=== PATIENT | male | born 1965 | race American Indian/Alaskan Native ===

== ENCOUNTER 2017-11-19 19:27 | Emergency (ER) | payer MEDICARE ==
[2017-11-19] MEDS ORDERED: ZOFRAN ODT PO ONE (19:54)
[2017-11-19 20:26] LABS: Hematocrit 44.3 % (35.5-45.6); Hemoglobin 14.5 gm/dl (11.8-15.2); Mean Corpuscular HGB Conc 33 % (32-34); Mean Corpuscular Hemoglobin 32 pg (28-32); Mean Corpuscular Volume 98 fl (84-94); Platelet Count 179 K/mm3 (140-440); Red Blood Count 4.52 M/mm3 (3.65-5.03); Red Cell Distribution Width 14.3 % (13.2-15.2)
[2017-11-19 20:39] LABS: INR 0.88 (0.87-1.13)
[2017-11-19 20:40] LABS: BUN/Creatinine Ratio 18; Blood Urea Nitrogen 16 mg/dL (9-20); Calcium 9.3 mg/dL (8.4-10.2); Hemolysis Index 2; Partial Thromboplastin Time 29.2 Sec. (24.2-36.6)
--- NOTE | 2017-11-19 21:07 | Cat Scan Report ---
FINAL REPORT PROCEDURE: CT HEAD/BRAIN WO CON TECHNIQUE: Computerized tomography of the head was performed without contrast material. HISTORY: severe headache s/p eye surgery COMPARISON: No prior studies are available for comparison. FINDINGS: Skull and scalp: Normal. Paranasal sinuses: Normal. Ventricles and subarachnoid spaces: Normal. Cerebrum: No evidence of hemorrhage, acute infarction or mass . Cerebellum and brainstem: No evidence of hemorrhage, acute infarction or mass. Vasculature: Normal. Comments: Vitreous of bilateral eye balls is hyperdense in nature. IMPRESSION: No acute intracranial abnormality Hyperdense which reassess in bilateral high balls is noted. This may be secondary to postsurgical status. Clinical correlation is recommended.
--- NOTE | 2017-11-19 21:37 | Cat Scan Report ---
FINAL REPORT PROCEDURE: CT ORBIT/EAR/FOSSA WO CON TECHNIQUE: Computerized axial tomography of the orbits was performed without contrast material. HISTORY: severe headache s/p eye surgery COMPARISON: No prior studies are available for comparison. FINDINGS: Bones and sinuses: Normal. Globes: Bilateral sclera appears thickened. Vitreous is diffusely and homogeneously hyperdense bilaterally. There is a crescent-shaped hypodense thickening of posterior left choroid. Extraocular muscles: Normal. Optic nerves: Normal. Lacrimal glands: Normal. IMPRESSION: Diffusely increased density of a vitreous bilaterally may represent postoperative changes. Thickening of the posterior choroid/retina. This may represent posterior uveitis in the appropriate clinical situation. Mild degree thickening of bilateral sclera is noted and scleritis cannot be excluded.
[2017-11-19] MEDS ORDERED: NORCO 5/325 PO ONE (23:37)
[2017-11-20] MEDS ORDERED: SUBLIMAZE IV ONE (03:50)
[2017-11-20] MEDS ORDERED: ZOFRAN IV ONE ×2 (03:50→06:48)
--- NOTE | 2017-11-20 04:10 | XRay Report ---
FINAL REPORT EXAM: XR CHEST ROUTINE 2V HISTORY: dyspnea, chest pain TECHNIQUE: PA and lateral views of the chest were submitted. FINDINGS: The heart size and mediastinum appear normal. There are no localized infiltrates or effusions. There is minimal atelectatic changes in the lingula. The skeletal structures reveal multilevel disc degeneration in the dorsal spine IMPRESSION: Minimal atelectatic changes in the lingula. No acute infiltrates or congestion.
[2017-11-20] MEDS ORDERED: NACL 0.9% 1000 ML 1,000 ML IV ONE (06:48)
[2017-11-20] MEDS ORDERED: DILAUDID IV ONE (06:48)
--- NOTE | 2017-11-20 07:37 | Emergency Department Report ---
ED Eye Problem HPI - General Chief complaint: Eye Problems Stated complaint: c/p Time Seen by Provider: 11/20/17 06:10 Source: patient Mode of arrival: Ambulatory Limitations: No Limitations - History of Present Illness Initial comments: 52-year-old male with a past medical history diabetes, hypertension, neuropathy , eye problems presents to the hospital complaints of pain left sided headache, nausea, vomiting, and palpitations. Patient had surgery 5 days ago on November 15. Patient states he has diabetic retinopathy and had a hemorrhage to his posterior left eye requiring drainage and placement of silicone. He also was told he had a lot of scar tissue. Patient has had left eye pain since his surgery that worsened yesterday and sprayed to his left side of his head. Patient was seen by his cement based materials pump tender yesterday as well prescribed a additional pain medication. Despite medication patient continues to have 10/10 left-sided headache and began to develop vomiting, heart palpitations, and chest pain. Patient has very little vision in his eye prior to surgery this time. He was told he could take several months to recover some vision. He also has had surgery in the past on his right eye. No fever reported. Supervisor [employer]: Alex Saldivar M.D. at the [facility] - Related Data Home Medications Medication Instructions Recorded Confirmed Last Taken metFORMIN [Glucophage] 500 mg PO BID 09/12/13 01/31/14 09/12/13 07:00 Lisinopril [Zestril TAB] 10 mg PO DAILY 01/31/14 01/31/14 Unknown Previous Rx's Medication Instructions Recorded Last Taken Type Insulin NPH/Regular [NovoLIN 70/30] 18 unit SUB-Q BIDDIAB #1500 units 09/24/13 Unknown Rx Aspirin [Aspirin BABY CHEW TAB] 81 mg PO QDAY #30 tab.chew 02/01/14 Unknown Rx Metoclopramide HCl [Reglan] 5 mg PO TIDAC #90 tablet 02/01/14 Unknown Rx Pantoprazole [Protonix] 40 mg PO QDAY #30 tablet 02/01/14 Unknown Rx Simethicone [Gas-X] 80 mg PO QID #30 tab.chew 02/01/14 Unknown Rx Allergies Allergy/AdvReac Type Severity Reaction Status Date / Time No Known Allergies Allergy Verified 09/12/13 19:40 ED Review of Systems ROS: Stated complaint: c/p Other details as noted in HPI Comment: All other systems reviewed and negative ED Past Medical Hx - Past Medical History Hx Hypertension: Yes Hx Heart Attack/AMI: No Hx Congestive Heart Failure: No Hx Diabetes: Yes Hx Deep Vein Thrombosis: No Hx Pulmonary Embolism: No Hx Liver Disease: No Hx Renal Disease: No Hx Sickle Cell Disease: No Hx Arthritis: No Hx Seizures: No Hx Kidney Stones: No Hx Asthma: No Hx COPD: No Hx Tuberculosis: No Hx Dementia: No Additional medical history: neuorpathy with chronic lower extremity pain. recent infection of herpes zoster to right flank area - Surgical History Hx Coronary Stent: No Hx Open Heart Surgery: No Hx Pacemaker: No Hx Internal Defibrillator: No Hx Cholecystectomy: No Hx Appendectomy: No Hx Breast Surgery: No Additional Surgical History: l) wrist artery surgery - Social History Smoking Status: Unknown if ever smoked Substance Use Type: None - Medications Home Medications: Home Medications Medication Instructions Recorded Confirmed Last Taken Type metFORMIN [Glucophage] 500 mg PO BID 09/12/13 01/31/14 09/12/13 07:00 History Insulin NPH/Regular [NovoLIN 70/30] 18 unit SUB-Q BIDDIAB #1500 units 09/24/13 01/31/14 Unknown Rx Lisinopril [Zestril TAB] 10 mg PO DAILY 01/31/14 01/31/14 Unknown History Aspirin [Aspirin BABY CHEW TAB] 81 mg PO QDAY #30 tab.chew 02/01/14 Unknown Rx Metoclopramide HCl [Reglan] 5 mg PO TIDAC #90 tablet 02/01/14 Unknown Rx Pantoprazole [Protonix] 40 mg PO QDAY #30 tablet 02/01/14 Unknown Rx Simethicone [Gas-X] 80 mg PO QID #30 tab.chew 02/01/14 Unknown Rx ED Physical Exam - General Limitations: No Limitations - Other Other exam information: General: No limitations, patient is alert in no acute distress Head exam: Atraumatic, normocephalic Eyes exam: Left eye conjunctival erythema with a dilated unresponsive pupil at approximately 5 mm. Patient states he Perceive light but no vision in his left eye beyond that.. Right eye approximately 3-4 mm and reactive. Extraocular movements intact. ENT: Moist mucous membrane, left tm normal Neck exam: Normal inspection, full range of motion, no meningismus nontender Respiratory exam: Clear to auscultation bilateral, no wheezes, rales, crackles Cardiovascular: Normal rate and rhythm, normal heart sounds Abdomen: Soft, nondistended, and nontender, with normal bowel sounds, no rebound, or guarding Extremity: Full range of motion normal inspection no deformity Back: Normal Inspection, full range of motion, no tenderness Neurologic: Alert, oriented x3, cranial nerves intact, no motor or sensory deficit Psychiatric: normal affect, normal mood Skin: Warm, dry, intact ED Course Vital Signs 11/19/17 11/19/17 11/20/17 19:40 23:43 02:00 Temperature 99.9 F H 98 F Pulse Rate 70 71 Respiratory 20 18 18 Rate Blood Pressure 154/98 Blood Pressure 148/96 [Left] O2 Sat by Pulse 99 100 Oximetry 11/20/17 05:45 Temperature Pulse Rate 72 Respiratory Rate Blood Pressure Blood Pressure 150/91 [Left] O2 Sat by Pulse Oximetry - Reevaluation(s) Reevaluation #1: 11/20/17 07:43 Patient treated with fentanyl, [place], when necessary IV Zofran prior to my arrival and continues to have significant pain with repeated episodes of nausea and vomiting. No chest pain reported Reevaluation #2: 11/20/17 08:21 pain and vomiting controlled after Dilaudid and zofran - Consultations Consultation #1: 11/20/17 08:22 Dr Hinojosa opthomologist returned call at this time. Request pt to be d/harmeet to the office to be seen. ED Medical Decision Making - Lab Data Result diagrams: 11/19/17 20:02 11/19/17 20:02 Lab Results 11/19/17 11/19/17 11/19/17 Range/Units 20:02 20:02 20:02 WBC 8.8 (4.5-11.0) K/mm3 RBC 4.52 (3.65-5.03) M/mm3 Hgb 14.5 (11.8-15.2) gm/dl Hct 44.3 (35.5-45.6) % MCV 98 H (84-94) fl MCH 32 (28-32) pg MCHC 33 (32-34) % RDW 14.3 (13.2-15.2) % Plt Count 179 (140-440) K/mm3 PT 12.4 (12.2-14.9) Sec. INR 0.88 (0.87-1.13) APTT 29.2 (24.2-36.6) Sec. Sodium 136 L (137-145) mmol/L Potassium 4.1 (3.6-5.0) mmol/L Chloride 99.1 (98-107) mmol/L Carbon Dioxide 24 (22-30) mmol/L Anion Gap 17 mmol/L BUN 16 (9-20) mg/dL Creatinine 0.9 (0.8-1.5) mg/dL Estimated GFR > 60 ml/min BUN/Creatinine Ratio 18 % Glucose 238 H (75-100) mg/dL Calcium 9.3 (8.4-10.2) mg/dL Troponin T (0.00-0.029) ng/mL 11/20/17 Range/Units 03:54 WBC (4.5-11.0) K/mm3 RBC (3.65-5.03) M/mm3 Hgb (11.8-15.2) gm/dl Hct (35.5-45.6) % MCV (84-94) fl MCH (28-32) pg MCHC (32-34) % RDW (13.2-15.2) % Plt Count (140-440) K/mm3 PT (12.2-14.9) Sec. INR (0.87-1.13) APTT (24.2-36.6) Sec. Sodium (137-145) mmol/L Potassium (3.6-5.0) mmol/L Chloride (98-107) mmol/L Carbon Dioxide (22-30) mmol/L Anion Gap mmol/L BUN (9-20) mg/dL Creatinine (0.8-1.5) mg/dL Estimated GFR ml/min BUN/Creatinine Ratio % Glucose (75-100) mg/dL Calcium (8.4-10.2) mg/dL Troponin T 0.019 (0.00-0.029) ng/mL - EKG Data -: EKG Interpreted by Me (irineo) EKG shows normal: sinus rhythm (69), axis (qrs -41), QRS complexes (qrsd 107), ST-T waves (no stemi/t inv) - EKG Data When compared to previous EKG there are: no significant change (compared to 01/14) - Radiology Data Radiology results: report reviewed PROCEDURE: CT HEAD/BRAIN WO CON TECHNIQUE: Computerized tomography of the head was performed without contrast material. HISTORY: severe headache s/p eye surgery COMPARISON: No prior studies are available for comparison. FINDINGS: Skull and scalp: Normal. Paranasal sinuses: Normal. Ventricles and subarachnoid spaces: Normal. Cerebrum: No evidence of hemorrhage, acute infarction or mass . Cerebellum and brainstem: No evidence of hemorrhage, acute infarction or mass. Vasculature: Normal. Comments: Vitreous of bilateral eye balls is hyperdense in nature. IMPRESSION: No acute intracranial abnormality Hyperdense which reassess in bilateral high balls is noted. This may be secondary to postsurgical status. Clinical correlation is recommended. FINAL REPORT PROCEDURE: CT ORBIT/EAR/FOSSA WO CON TECHNIQUE: Computerized axial tomography of the orbits was performed without contrast material. HISTORY: severe headache s/p eye surgery COMPARISON: No prior studies are available for comparison. FINDINGS: Bones and sinuses: Normal. Globes: Bilateral sclera appears thickened. Vitreous is diffusely and homogeneously hyperdense bilaterally. There is a crescent-shaped hypodense thickening of posterior left choroid. Extraocular muscles: Normal. Optic nerves: Normal. Lacrimal glands: Normal. IMPRESSION: Diffusely increased density of a vitreous bilaterally may represent postoperative changes. Thickening of the posterior choroid/retina. This may represent posterior uveitis in the appropriate clinical situation. Mild degree thickening of bilateral sclera is noted and scleritis cannot be excluded. FINAL REPORT EXAM: XR CHEST ROUTINE 2V HISTORY: dyspnea, chest pain TECHNIQUE: PA and lateral views of the chest were submitted. FINDINGS: The heart size and mediastinum appear normal. There are no localized infiltrates or effusions. There is minimal atelectatic changes in the lingula. The skeletal structures reveal multilevel disc degeneration in the dorsal spine IMPRESSION: Minimal atelectatic changes in the lingula. No acute infiltrates or congestion. - Medical Decision Making Patient's symptoms likely result of left eye surgery with associated pain. EKG unchanged from previous, cardiac enzymes negative 1 and patient denies persistent chest pain or discomfort. Pain finally improved after Dilaudid and Zofran in patient no longer vomiting. Patient will be discharged to go directly to his cement based materials pump tender office. Reports of CT head and orbits will be provided to take to his doctor for his stat follow-up. Patient glucose 200's upon discharge and patient instructed to take his medications to manage his sugar after his cement based materials pump tender visit. Hesitant to give insulin and then discharged since patient will not be eating this a.m. until after f/u and I do not want to cause hypoglycemia. - Differential Diagnosis mi, arrhythmia, intracranial hemorrhage, intraocular hemorrhage, IOP Critical Care Time: No Critical care attestation.: If time is entered above; I have spent that time in minutes in the direct care of this critically ill patient, excluding procedure time. ED Disposition Clinical Impression: Diabetes mellitus, Diabetic retinopathy, S/P eye surgery, Post-op pain, Vomiting, Atypical chest pain Disposition: TO HOME OR SELFCARE Is pt being admited?: No Does the pt Need Aspirin: No Condition: Stable Instructions: Diabetes Mellitus Type 2 in Adults (ED), Chest Pain (ED), Eye Pain (ED) Additional Instructions: Go to your office of the cement based materials pump tender immediately after discharge. Manage your sugars with your home medication after you are discharged from the cement based materials pump tender office. Take the copies of your CAT scan reports a doctor for follow-up Referrals: MASON ORONA MD [Primary Care Provider] - 3-5 Days MD Ashish [Other] - 11/20/17 (Supervisor [employer] Go to office to be evaluated by your cement based materials pump tender immediately after discharge. ) Time of Disposition: 08:29
[2017-11-20 08:34] VITALS: BP 158/90
== END 2017-11-20 08:42 | disposition home or self-care (01) ==
LOC: ED 19:27
DX: E11.319 Type 2 diabetes mellitus with unspecified diabetic retinopathy without macular edema (principal); R07.89 Other chest pain; G89.18 Other acute postprocedural pain; I10 Essential (primary) hypertension
CPT/HCPCS: 36415; 70450; 70480; 71046; 80048; 82962; 84484; 85027; 85610; 85730; 93005; 93010; 96361; 96374; 96375; 96376; 99285; J1170; J2405; J3010; J7030; Q0162

== ENCOUNTER 2021-12-26 00:53 | Emergency (ER) | payer MEDICARE ==
[2021-12-26] MEDS ORDERED: MORPHINE 4 MG/1 ML INJ IV ONE (03:01)
[2021-12-26] MEDS ORDERED: ONDANSETRON 4 MG/2 ML INJ IV ONE ×2 (03:01→08:59)
[2021-12-26] MEDS ORDERED: INSULIN REGULAR, HUMAN 100 UNITS/1 ML IV ONE (03:01)
[2021-12-26] MEDS ORDERED: SODIUM CHLORIDE 0.9% 1000 ML 1,000 ML IV ONE ×2 (03:01→04:55)
[2021-12-26] MEDS ORDERED: INSULIN NPH/REGULAR 70/30 INJ SUB-Q ONE (03:04)
[2021-12-26 03:30] LABS: Basophils % (Auto) 0.4 % (0.0-1.8); Hematocrit 53.8 % (35.5-45.6); Hemoglobin 17.1 gm/dl (11.8-15.2); Lymphocytes # (Auto) 1.9 K/mm3 (1.2-5.4); Lymphocytes % (Auto) 21.9 % (13.4-35.0); Mean Corpuscular HGB Conc 32 % (32-34); Mean Corpuscular Volume 96 fl (84-94); Monocytes # (Auto) 0.8 K/mm3 (0.0-0.8); Monocytes % (Auto) 9.4 % (0.0-7.3); Platelet Count 159 K/mm3 (140-440); Red Blood Count 5.62 M/mm3 (3.65-5.03); Red Cell Distribution Width 15.1 % (13.2-15.2)
[2021-12-26 03:49] LABS: Calcium 9.1 mg/dL (8.4-10.2)
--- NOTE | 2021-12-26 03:55 | Emergency Department Report ---
<EFRAIN HINTON - Last Filed: 12/26/21 06:10> ED General Adult HPI - General Chief complaint: Hyperglycemia Stated complaint: NAUSEA,VOMITING,HYPERGLYCEMIA,HIGH BP Time Seen by Provider: 12/26/21 03:49 Source: patient, EMS Mode of arrival: Stretcher Limitations: No Limitations - History of Present Illness Initial comments: 56-year-old male with a history of diabetes who now presented with nausea and nonbloody vomiting associated with nonbloody diarrhea that is going on for the last 3 days. Patient reported that he could not keep any fluid or meal due to this symptoms. No fever or chills reported. No other modifying or associated factors reported. Severity scale (0 -10): 9 - Related Data Home Medications Medication Instructions Recorded Confirmed Last Taken metFORMIN [Glucophage] 500 mg PO BID 09/12/13 12/26/21 09/12/13 07:00 Previous Rx's Medication Instructions Recorded Last Taken Type Insulin NPH/Regular [NovoLIN 70/30] 18 unit SUB-Q BIDDIAB #1500 units 09/24/13 Unknown Rx Aspirin [Aspirin BABY CHEW TAB] 81 mg PO QDAY #30 tab.chew 02/01/14 Unknown Rx Metoclopramide HCl [Reglan] 5 mg PO TIDAC #90 tablet 02/01/14 Unknown Rx Pantoprazole [Protonix] 40 mg PO QDAY #30 tablet 02/01/14 Unknown Rx Simethicone [Gas-X] 80 mg PO QID #30 tab.chew 02/01/14 Unknown Rx Allergies Allergy/AdvReac Type Severity Reaction Status Date / Time lisinopril Allergy Unknown Verified 12/26/21 02:23 ED Review of Systems Comment: All other systems reviewed and negative Gastrointestinal: nausea, vomiting, diarrhea ED Past Medical Hx - Past Medical History Previous Medical History?: Yes Hx Hypertension: Yes Hx Heart Attack/AMI: No Hx Congestive Heart Failure: No Hx Diabetes: Yes Hx Deep Vein Thrombosis: No Hx Pulmonary Embolism: No Hx Liver Disease: No Hx Renal Disease: No Hx Sickle Cell Disease: No Hx Arthritis: No Hx Seizures: No Hx Kidney Stones: No Hx Asthma: No Hx COPD: No Hx Tuberculosis: No Hx Dementia: No Additional medical history: neuorpathy with chronic lower extremity pain. recent infection of herpes zoster to right flank area - Surgical History Hx Coronary Stent: No Hx Open Heart Surgery: No Hx Pacemaker: No Hx Internal Defibrillator: No Hx Cholecystectomy: No Hx Appendectomy: No Hx Breast Surgery: No Additional Surgical History: l) wrist artery surgery - Social History Smoking Status: Former Smoker - Medications Home Medications: Home Medications Medication Instructions Recorded Confirmed Last Taken Type metFORMIN [Glucophage] 500 mg PO BID 09/12/13 12/26/21 09/12/13 07:00 History Insulin NPH/Regular [NovoLIN 70/30] 18 unit SUB-Q BIDDIAB #1500 units 09/24/13 12/26/21 Unknown Rx Aspirin [Aspirin BABY CHEW TAB] 81 mg PO QDAY #30 tab.chew 02/01/14 12/26/21 Unknown Rx Metoclopramide HCl [Reglan] 5 mg PO TIDAC #90 tablet 02/01/14 12/26/21 Unknown Rx Pantoprazole [Protonix] 40 mg PO QDAY #30 tablet 02/01/14 12/26/21 Unknown Rx Simethicone [Gas-X] 80 mg PO QID #30 tab.chew 02/01/14 12/26/21 Unknown Rx ED Physical Exam - General Limitations: No Limitations General appearance: alert, in no apparent distress - Head Head exam: Present: normal inspection - Eye Eye exam: Present: normal appearance Pupils: Present: normal accommodation - ENT ENT exam: Present: normal exam, normal orophraynx, mucous membranes dry - Neck Neck exam: Present: normal inspection. Absent: tenderness - Respiratory Respiratory exam: Present: normal lung sounds bilaterally. Absent: respiratory distress, accessory muscle use - Cardiovascular Cardiovascular Exam: Present: regular rate, normal rhythm, normal heart sounds - GI/Abdominal GI/Abdominal exam: Present: soft, normal bowel sounds. Absent: tenderness (Mildly diffuse) - Extremities Exam Extremities exam: Present: normal inspection. Absent: tenderness - Back Exam Back exam: Present: normal inspection. Absent: tenderness - Neurological Exam Neurological exam: Present: alert, oriented X3 - Psychiatric Psychiatric exam: Present: normal affect - Skin Skin exam: Present: warm, normal color ED Course - Reevaluation(s) Reevaluation #1: 12/26/21 06:[address] Sparrow while waiting for patient response to fluid and result of CT abd/pel -- ED Medical Decision Making - Lab Data Result diagrams: 12/26/21 03:14 12/26/21 03:14 - Medical Decision Making Here with abdominal pain--this is likely gastroenteritis with hyperglycemia but could not limited differential to appendicitis, diverticulitis, cholecystitis, cholelithiasis, nephrolithiasis, gastritis, pancreatitis, duodenitis, colitis, irritable bowel syndrome, cystitis, so in order to rule this out we will go ahead and order routine acute abdomen that include CBC, CMP, urinalysis, and CT imaging of the abdomen/pelvic. 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 If you change your mind or if you have any new symptoms or current symptom worsen, please return to the Emergency Room immediately. Referrals: ALVARADO IRENE MD [Primary Care Provider] - 3-5 Days <IBRAHIMA SPARROW - Last Filed: 12/26/21 10:13> ED Review of Systems ROS: Stated complaint: NAUSEA,VOMITING,HYPERGLYCEMIA,HIGH BP Other details as noted in HPI ED Course Vital Signs 12/26/21 12/26/21 12/26/21 02:14 02:15 02:16 Temperature 97.9 F Pulse Rate 95 H 97 H Respiratory 19 20 Rate Blood Pressure 173/106 173/106 176/103 Blood Pressure 176/103 [Left] O2 Sat by Pulse 99 98 Oximetry 12/26/21 12/26/21 12/26/21 02:26 02:31 02:45 Temperature Pulse Rate 94 H 97 H Respiratory 25 H 22 Rate Blood Pressure 197/114 184/99 Blood Pressure [Left] O2 Sat by Pulse 99 99 99 Oximetry 12/26/21 12/26/21 12/26/21 03:01 03:15 03:31 Temperature Pulse Rate 97 H 102 H 97 H Respiratory 17 19 18 Rate Blood Pressure 201/99 201/99 201/99 Blood Pressure [Left] O2 Sat by Pulse 100 99 100 Oximetry 12/26/21 12/26/21 12/26/21 03:45 03:46 04:01 Temperature Pulse Rate 95 H 96 H 95 H Respiratory 13 15 18 Rate Blood Pressure 192/96 182/91 Blood Pressure 192/96 [Left] O2 Sat by Pulse 98 98 99 Oximetry 12/26/21 12/26/21 12/26/21 04:15 04:31 04:45 Temperature Pulse Rate 94 H 93 H 97 H Respiratory 19 18 19 Rate Blood Pressure 192/97 191/100 192/96 Blood Pressure [Left] O2 Sat by Pulse 97 99 96 Oximetry 12/26/21 12/26/21 12/26/21 05:01 05:15 05:31 Temperature Pulse Rate 91 H 100 H 96 H Respiratory 16 15 15 Rate Blood Pressure 176/98 176/98 193/161 Blood Pressure [Left] O2 Sat by Pulse 99 97 99 Oximetry 12/26/21 12/26/21 12/26/21 05:45 06:01 06:15 Temperature Pulse Rate 96 H 94 H 90 Respiratory 14 17 16 Rate Blood Pressure 174/101 185/92 Blood Pressure [Left] O2 Sat by Pulse 99 98 100 Oximetry 12/26/21 12/26/21 12/26/21 06:31 06:45 06:48 Temperature Pulse Rate 87 91 H 92 H Respiratory 17 13 18 Rate Blood Pressure 183/97 Blood Pressure 183/97 [Left] O2 Sat by Pulse 97 99 Oximetry 12/26/21 12/26/21 12/26/21 07:01 07:15 07:31 Temperature Pulse Rate 95 H 91 H 94 H Respiratory 12 17 19 Rate Blood Pressure 198/100 183/99 158/72 Blood Pressure [Left] O2 Sat by Pulse 97 98 96 Oximetry 12/26/21 12/26/21 12/26/21 07:45 08:01 08:15 Temperature Pulse Rate 87 87 99 H Respiratory 18 15 12 Rate Blood Pressure 158/72 156/80 158/72 Blood Pressure [Left] O2 Sat by Pulse 95 98 100 Oximetry - Reevaluation(s) Reevaluation #1: 12/26/21 10:11 I have explained to the patient of current laboratory and also image finding and recommend that we obtain additional studies such as ABG given that patient's gap is still elevated which is consistent with high anion gap and by definition patient is most likely acidotic and I would like to get additional ABG and also ketones. However patient have declined several times after I explained to him the risk and benefit; the risk of leaving against medical vice that he will be taking full risk such as diabetic ketoacidosis or even possibly and patient is fully aware of. I have also informed patient that if he ever changes my or any new symptom or concern or worsening please return to the ER as the emergency room is 24 hours open for any patients and patient is fully aware of it. Patient signed out AGAINST MEDICAL ADVICE. I have also advised patient to please see his primary care provider right away. ED Medical Decision Making - Lab Data Result diagrams: 12/26/21 03:14 12/26/21 08:05 Critical care attestation.: If time is entered above; I have spent that time in minutes in the direct care of this critically ill patient, excluding procedure time. ED Disposition Is pt being admited?: No Does the pt Need Aspirin: No Time of Disposition: 10:10
[2021-12-26] MEDS ORDERED: oxyCODONE /ACETAMINOPHEN 5-325MG TAB PO ONE (06:17)
[2021-12-26] MEDS ORDERED: LACTATED RINGERS 1,000 ML IV ONE (06:28)
--- NOTE | 2021-12-26 06:33 | Cat Scan Report ---
CT ABDOMEN AND PELVIS WITHOUT CONTRAST INDICATION / CLINICAL INFORMATION: abdominal pain. TECHNIQUE: Axial CT images were obtained through the abdomen and pelvis without IV contrast. All CT scans at this location are performed using CT dose reduction for ALARA by means of automated exposure control. COMPARISON: None available. FINDINGS: LOWER CHEST: Circumferential wall thickening of the lower esophagus and small hiatal hernia present. This could reflect evidence of esophagitis or chronic reflux. If further evaluation is clinically ind icated, EGD is recommended. LIVER: No focal lesion. No acute findings. GALLBLADDER / BILE DUCTS: No significant abnormality. Biliary ducts grossly unremarkable. SPLEEN: No significant abnormality. PANCREAS: No significant abnormality. ADRENALS: Mild adrenal hyperplasia not excluded. KIDNEYS/URETERS: Nonspecific perinephric fat stranding without evidence of nephrolithiasis. Minimal r enovascular calcifications right kidney. STOMACH / DUODENUM / SMALL BOWEL: The stomach, duodenum, and small bowel demonstrate no significant a bnormality. No specific abnormality of the mesentery demonstrated. COLON: No significant abnormality. APPENDIX: No significant abnormality. PERITONEUM: No free air or free fluid are present within the abdomen or pelvis. LYMPH NODES: No significant adenopathy. AORTA / ARTERIES: Moderate atherosclerotic calcification without acute abnormality. IVC / VEINS: No significant abnormality. URINARY BLADDER: No significant abnormality. REPRODUCTIVE ORGANS: No significant abnormality. SKELETAL SYSTEM: No significant abnormality. ADDITIONAL ABDOMINAL/PELVIC FINDINGS: None. IMPRESSION: 1. Nonspecific perinephric fat stranding could reflect evidence of infection or inflammatory process. Correlation with urinalysis and culture recommended. 2. Circumferential wall thickening of the lower esophagus and small hiatal hernia present as detailed . Signer Name: Arthur Castaneda II, MD Signed: 12/26/2021 6:28 AM Workstation Name: [id number]
[2021-12-26 07:33] LABS: Mucus,Urine FEW /HPF
[2021-12-26 07:40] LABS: Color,Urine Straw (Yellow)
[2021-12-26 07:41] LABS: Bilirubin,Urine Negative (Negative)
[2021-12-26 07:42] LABS: Blood,Urine Moderate (Negative)
[2021-12-26 07:43] LABS: Protein,Urine 300 mg/dL mg/dL (Negative); Urobilinogen,Urine < 2.0 mg/dL (<2.0)
[2021-12-26 09:49] LABS: Calcium 8.8 mg/dL (8.4-10.2)
[2021-12-26 10:29] VITALS: BP 189/103
== END 2021-12-26 10:30 | disposition left against medical advice (07) ==
LOC: ED 00:53
DX: E11.65 Type 2 diabetes mellitus with hyperglycemia (principal); R31.9 Hematuria, unspecified; R74.02 Elevation of levels of lactic acid dehydrogenase [LDH]; I10 Essential (primary) hypertension; Z88.8 Allergy status to other drugs, medicaments and biological substances; E11.9 Type 2 diabetes mellitus without complications; Z87.891 Personal history of nicotine dependence
CPT/HCPCS: 36415; 74176; 80048; 80053; 81001; 82010; 82140; 82962; 85025; 96361; 96372; 96374; 96375; 96376; 99285; J2270; J2405; J7030; J7120; Q0177; Q9967; J1815